=== PATIENT | female | born 1955 | race Hispanic/Latino ===

== ENCOUNTER 2017-09-17 16:16 | Inpatient (IN) | payer OTHER ==
--- NOTE | 2017-09-17 17:38 | RAD ---
LEFT ANKLE THREE VIEWS: 09/17/17 HISTORY: Injury, left ankle pain. FINDINGS: There is a mildly displaced fracture of the medial malleolus and nondisplaced fracture involving the distal shaft of the left fibula. The ankle mortise is maintained. Soft tissue swelling is present. IMPRESSION: Fracture of the distal tibia and fibula. POS: [facility]
[2017-09-17] MEDS ORDERED: Morphine 4 MG/ML Carpuject ONE ×2 (18:07→19:09)
[2017-09-17] MEDS ORDERED: Ondansetron HCl/PF 4 MG/2 ML Vial ONE (18:07)
[2017-09-17 19:36] LABS: #Lymphocytes 2.6 thou/uL (1.20-3.40); #Monocytes 0.5 thou/uL (0.11-0.59); #Neutrophils 8.5 thou/uL (1.40-6.50); %Basophils 0.3 % (0.0-1.0); %Eosinophils 0.4 % (0.0-10.0); %Lymphocytes 22.5 % (21.0-51.0); %Monocytes 4.4 % (0.0-10.0); %Neutrophils 72.4 % (42.0-75.0); Hemoglobin 13.1 g/dL (12.0-16.0); Mean Corpuscular HGB CONC 33.8 g/dL (32.0-36.0); Mean Corpuscular Hemoglobin 29.3 pg (27.0-31.0); Mean Corpuscular Volume 86.7 fl (81.0-99.0); Mean Platelet Volume 7.1 fL (7.4-10.4); Platelet Count 299 thou/uL (130-400); RBC Distribution Width 11.7 % (11.5-14.5); Red Blood Cell (RBC) Count 4.46 mill/uL (4.20-5.40); White Blood Cell (WBC) Count 11.7 thou/uL (4.8-10.8)
[2017-09-17] MEDS ORDERED: Sodium Chloride 0.9% 1,000 ML IV SCH (19:58)
[2017-09-17] MEDS ORDERED: Morphine 4 MG/ML Carpuject SLOW IVP PRN ×2 (19:58→20:14)
[2017-09-17] MEDS ORDERED: Ondansetron HCl/PF 4 MG/2 ML Vial IVP PRN ×2 (19:58→20:14)
[2017-09-17 20:00] LABS: ALT (SGPT) 16 U/L (8-55); AST (SGOT) 16 U/L (5-34); Albumin 4.4 g/dL (3.4-4.8); Alkaline Phosphatase 100 U/L (40-150); Anion Gap 17 mmol/L (10-20); BUN (Urea Nitrogen) 15 mg/dL (9.8-20.1); Bilirubin, Total 0.3 mg/dL (0.2-1.2); Calc. Creatinine Clearance 0 mL/min (70-130); Calcium 9.8 mg/dL (7.8-10.44); Carbon Dioxide 20 mmol/L (23-31); Chloride 103 mmol/L (98-107); Estimated GFR-MDRD 82; Globulin 3.7 g/dL (2.4-3.5); Glucose 182 mg/dL (80-115); Potassium 4.2 mmol/L (3.5-5.1); Protein, Total 8.1 g/dL (6.0-8.3); Sodium 136 mmol/L (136-145)
[2017-09-17] MEDS ORDERED: Promethazine HCl 25 MG/ML VIAL IM PRN (20:14)
[2017-09-17] MEDS ORDERED: traMADol HCl 50 MG TAB PO PRN ×2 (20:14)
[2017-09-17] MEDS ORDERED: Dextrose 5% in Water 1,000 ML IV PRN (20:14)
[2017-09-17] MEDS ORDERED: Morphine 4 MG/ML Carpuject IVP PRN (20:14)
[2017-09-17] MEDS ORDERED: Dextrose 50% Abboject 50 ML SYRINGE SLOW IVP PRN (20:14)
[2017-09-17] MEDS ORDERED: Ondansetron ODT 4 MG TAB PO PRN (20:14)
[2017-09-17] MEDS ORDERED: hydrALAZINE 20 MG/ML VIAL SLOW IVP PRN (20:14)
--- NOTE | 2017-09-17 20:20 | HP ---
Paul Ricketts PA-C, dictating for Dr. Tutu Harvey. ATTENDING PHYSICIAN: Tutu Harvey M.D. CONSULTING PHYSICIAN: Kenneth Foster M.D. CHIEF COMPLAINT: Evaluation for ankle pain status post injury. 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 She reported pain immediately to that area, inability to ambulate. She denied any LOC, or any other injury, or any other pain anywhere at this time, or chest pain, shor tness of breath. PAST MEDICAL HISTORY: Includes diabetes. MEDICATIONS: She takes metformin. ALLERGIES: No known drug allergies. PAST SURGICAL HISTORY: Includes cholecystectomy. PSYCHIATRIC: None. SOCIAL HISTORY: She denies any drug, alcohol, or smoking history. REVIEW OF SYSTEMS: All 10 systems were reviewed otherwise stated in HPI were negative. PHYSICAL EXAMINATION: VITAL SIGNS: Blood pressure 174/77, heart rate of 83, respiratory rate 22, temperature 99. Pain 10/ 10. O2 saturation 100% on room air. HEENT: Atraumatic, normocephalic. Pupils equal, round, and reactive to light. No JVD, no masses. Trachea is midline. Cervical spine is nontender. RESPIRATORY: Clear bilaterally via auscultation. CARDIOVASCULAR: S1, S2, regular rate and rhythm. ABDOMEN: Soft, nontender, nondistended. EXTREMITIES: Normal exam. Left lower extremity is being casted at this time, but positive pulses we re felt, a small abrasion was noted and tenderness to the ankle. Right lower extremity was devoid of injury. NEUROLOGIC: GCS 15. SKIN: Warm and dry. LABORATORY VALUES: Pending. RADIOLOGIC FINDINGS: Ankle x-ray fracture of the distal tibia and fibula. ASSESSMENT: 1. Status post injury with a door. 2. Fracture of the left tibia and fibula. 3. Acute traumatic pain. 4. History of diabetes. PLAN: We will place her on surgical floor and consult the Orthopedics, Dr. Foster will take her to surgery tomorrow. She will be n.p.o. after midnight. Continue with IV fluids. We will optimize her pain management with p.o. and IV analgesics. Initiate DVT prophylaxis and gastritis prophylaxis whe n appropriate. This patient has been discussed with Dr. Harvey, who agrees with the above plan.
[2017-09-17] MEDS: Famotidine/PF 20 mg/2ml Vial SLOW IVP SCH (20:48)
[2017-09-17] MEDS: Sodium Chloride 0.9% 1,000 ML IV SCH (20:48)
[2017-09-17] MEDS: Acetaminophen 500 MG TAB PO SCH (23:27)
[2017-09-17] MEDS: Ketorolac Tromethamine 30 MG/ML VIAL IVP SCH (23:27)
[2017-09-18] MEDS: HumaLOG 300 UNITS/3 ML VIAL SC PRN ×4 (01:18→19:15)
[2017-09-18 04:19] LABS: #Eosinphils 0.1 thou/uL (0.0-0.7); #Lymphocytes 2.1 thou/uL (1.20-3.40); #Monocytes 0.9 thou/uL (0.11-0.59); %Basophils 0.3 % (0.0-1.0); %Eosinophils 0.6 % (0.0-10.0); %Lymphocytes 23.4 % (21.0-51.0); %Monocytes 10.3 % (0.0-10.0); %Neutrophils 65.4 % (42.0-75.0); Hemoglobin 11.7 g/dL (12.0-16.0); Mean Corpuscular HGB CONC 33.8 g/dL (32.0-36.0); Mean Corpuscular Hemoglobin 29.5 pg (27.0-31.0); Mean Corpuscular Volume 87.5 fl (81.0-99.0); Mean Platelet Volume 7.3 fL (7.4-10.4); Platelet Count 244 thou/uL (130-400); RBC Distribution Width 11.6 % (11.5-14.5); Red Blood Cell (RBC) Count 3.95 mill/uL (4.20-5.40); White Blood Cell (WBC) Count 9.1 thou/uL (4.8-10.8)
[2017-09-18 04:34] LABS: Anion Gap 6 mmol/L (10-20); BUN (Urea Nitrogen) 15 mg/dL (9.8-20.1); Calc. Creatinine Clearance 0 mL/min (70-130); Calcium 8.7 mg/dL (7.8-10.44); Carbon Dioxide 27 mmol/L (23-31); Chloride 107 mmol/L (98-107); Estimated GFR-MDRD 82; Glucose 303 mg/dL (80-115); Potassium 3.8 mmol/L (3.5-5.1); Sodium 136 mmol/L (136-145)
[2017-09-18 05:24] VITALS: BMI 24.0
[2017-09-18] MEDS: Ketorolac Tromethamine 30 MG/ML VIAL IVP SCH (05:54)
[2017-09-18] MEDS: Acetaminophen 500 MG TAB PO SCH ×3 (05:55→18:05)
[2017-09-18] MEDS: Sodium Chloride 0.9% 1,000 ML IV SCH (07:45)
--- NOTE | 2017-09-18 08:08 | CON ---
DATE OF CONSULTATION: 09/18/2017 CHIEF COMPLAINT: Left ankle pain. HISTORY OF PRESENT ILLNESS: Ms. Velázquez is a 62-year-old female who fell yesterday. She was pushing a large metal door against the wind when the door overcame her, knocking her down. She twisted her ankle. She had immediate pain. She was unable to ambulate on the left ankle. She was seen in the e mergency department where a left bimalleolar ankle fracture was identified. PAST MEDICAL HISTORY: Diabetes. PAST SURGICAL HISTORY: Positive for cholecystectomy. MEDICATIONS: Metformin. ALLERGIES: No known drug allergies. SOCIAL HISTORY: The patient denies tobacco, alcohol, or smoking. PHYSICAL EXAMINATION: VITAL SIGNS: Stable. Temperature is 98.0, pulse is 61, respiratory 18, blood pressure 111/66. GENERAL: She is alert and oriented, no apparent distress, sitting upright. RESPIRATORY: Breathing comfortably. ABDOMEN: Soft, nontender, nondistended. MUSCULOSKELETAL: The patient's left ankle has a splint. She has 2 second capillary refill. She has good flexion and extension of the toes. Sensation is intact distally. IMAGES: X-rays of the ankle demonstrate a bimalleolar ankle fracture with displacement and slight di sruption of the ankle mortise. IMPRESSION: Left ankle bimalleolar fracture with instability. PLAN: The patient will go to the operating room today for open reduction and internal fixation of th e ankle to restore anatomic alignment and promote healing. Risks have been reviewed including wound complications, hardware complication, nonunion, malunion and others. She will have appropriate DVT p rophylaxis and antibiotic prophylaxis. She will be n.p.o. until after surgery.
[2017-09-18] MEDS ORDERED: CEFAZOLIN/Water 2 GM/20 ML SYRINGE ONE (08:10)
[2017-09-18] MEDS ORDERED: Fentanyl 100 MCG/2 ML VIAL ONE ×3 (08:49→10:56)
[2017-09-18] MEDS ORDERED: Midazolam HCl 2 mg/2 ml Vial ONE (08:49)
[2017-09-18] MEDS ORDERED: Lidocaine 1% (PF) 30 ML VIAL ONE (08:50)
[2017-09-18] MEDS ORDERED: Ondansetron HCl/PF 4 MG/2 ML Vial IVP PRN (11:34)
[2017-09-18] MEDS ORDERED: Promethazine HCl 25 MG/ML VIAL SLOW IVP PRN (11:34)
[2017-09-18] MEDS ORDERED: Promethazine HCl 25 MG/ML VIAL IM PRN (11:34)
--- NOTE | 2017-09-18 12:00 | OP ---
DATE OF PROCEDURE: 09/18/2017 OPERATION: Open reduction and internal fixation of right ankle fracture, bimalleolar. PREOPERATIVE DIAGNOSIS: Right bimalleolar ankle fracture. POSTOPERATIVE DIAGNOSIS: Right bimalleolar ankle fracture. COMPLICATIONS: None. ESTIMATED BLOOD LOSS: Minimal. SURGEON: Raman Sam M.D. ANESTHESIA: General. INDICATIONS: Ms. Velázquez is a 62-year-old female who fell yesterday. She fractured her left ankle. She has an unstable left bimalleolar ankle fracture. She has been indicated for open reduction and internal fixation to restore function and relieve pain. Risks have been reviewed and have been deeme d to be acceptable. She was to proceed. DESCRIPTION OF PROCEDURE: Mr. Velázquez was identified in the preoperative holding area. Her correct extremity was marked. She was carried to the operating room. She was positioned supine. General an esthesia was induced. A multidisciplinary timeout was performed. The left lower extremity was prepp ed and draped in sterile fashion. We began the procedure with a lateral approach to the fibula. We dissected down through the subcutan eous tissues to the bony level. The fibula fracture was exposed. We performed an anatomic reduction . At this point, a 6-hole 1/3 tubular plate was placed along the lateral cortex. Six screws were pl aced transversing the fracture, holding it into its anatomic position. We took x-rays confirming thi s. We then moved to the medial side. A small incision was made over the medial malleolus. We then plac ed a percutaneous 4.0 partially threaded screws across the medial malleolar fracture fragment. We pl aced a second screw enhancing our stabilization. We took x-ray images including a stress view, which was negative. We thoroughly irrigated with copious lavage. We then closed with 2-0 Vicryl suture a nd rika for the skin. A sterile dressing was applied. A splint was placed. The patient was take n to the recovery room in good condition at this point without complication.
[2017-09-18] MEDS: Famotidine/PF 20 mg/2ml Vial SLOW IVP SCH ×2 (12:21→21:21)
--- NOTE | 2017-09-18 13:24 | RAD ---
THREE VIEWS OF THE LEFT ANKLE: HISTORY: Ankle fracture, status post ORIF. COMPARISON: 09/17/2017 FINDINGS/IMPRESSION: Three limited intraoperative fluoroscopic views of the left ankle were submitted for interpretation. The patient is status post screw fixation of the medial malleolus fracture. The patient is status p ost plate and screw fixation of the fistula fibula fracture. Normal alignment of the ankle mortise i s seen. POS: [facility]
[2017-09-18] MEDS ORDERED: Bupivacaine HCl 0.5%/Epinephrine 1:200,000/PF 30 ml Vial ONE (13:30)
[2017-09-18] MEDS ORDERED: CEFAZOLIN 1 GM in Sodium Chloride 0.9% 100 ML IVPB SCH (14:00)
[2017-09-18] MEDS ORDERED: PROPOFOL 200 MG/20 ML VIAL ONE (14:09)
[2017-09-18] MEDS ORDERED: Ketorolac Tromethamine 30 MG/ML VIAL ONE (14:09)
[2017-09-18] MEDS ORDERED: Dexamethasone 20 MG/5 ML VIAL ONE (14:09)
[2017-09-18] MEDS ORDERED: Ondansetron HCl/PF 4 MG/2 ML Vial ONE (14:09)
[2017-09-18] MEDS ORDERED: Lidocaine 1% PF 5 ML VIAL ONE (14:09)
[2017-09-18] MEDS: CEFAZOLIN 1 GM, Syringe 2.5 ML in Sterile Water 7.5 ML SLOW IVP SCH ×2 (14:29→21:22)
--- NOTE | 2017-09-18 19:17 | PRG ---
DATE OF SERVICE: 09/18/2017 Sonia Nash NP, dictating for Carrillo Morales DO ATTENDING PHYSICIAN: Dr. Carrillo Morales. SUBJECTIVE: The patient is a 62-year-old female who sustained a fall one day ago after being knocked down by a metal door. She was admitted to the hospital by Trauma Services with a consult by Dr. Sam, Orthopedics. A right bimalleolar ankle fracture was identified. She was taken to the operating room today for fixation of the right ankle fracture. She is now seen postoperatively on the surgical floor. Pain is well controlled. She is ambulating with no assistance with a walker. OBJECTIVE: VITAL SIGNS: Temperature 98.4, pulse 73, respirations 19, O2 sat 97% on room air, blood pressure 143/81. GENERAL: A 62-year-old female seen ambulating in room with walker. No acute distress. Nontoxic appearing. PULMONARY: Respirations even, unlabored. No respiratory distress. CARDIOVASCULAR: Regular rate and rhythm. Heart sounds normal. ABDOMEN: Soft, nontender, nondistended. EXTREMITIES: Moves all extremities well. Splint in place to the left lower extremity. Cap refill brisk. Neurovascularly intact. All digits warm. NEUROLOGIC: Awake, alert, oriented x3. GCS 15. ASSESSMENT: 1. Status post ground level fall. 2. Left bimalleolar ankle fracture. 3. Status post open reduction internal fixation left ankle. PLAN: 1. Continue care on surgical floor as ordered. 2. Continue PT and OT. 3. Continue IV antibiotics per Orthopedic Service. 4. Regular diet and oral analgesia. The patient was seen with Dr. Morales, attending trauma surgeon, who agrees with the assessment and plan. [facility]
[2017-09-18] MEDS: Aspirin 81 mg Enteric Coated Tablet PO SCH (21:22)
[2017-09-19] MEDS: Acetaminophen 500 MG TAB PO SCH ×3 (00:28→12:26)
[2017-09-19 04:44] VITALS: TEMP 97.9
--- NOTE | 2017-09-19 08:20 | PRG ---
DATE OF SERVICE: 09/19/2017 SUBJECTIVE: The patient is doing well. She is sitting upright in no apparent distress. No complain ts or problems overnight. OBJECTIVE: VITAL SIGNS: Stable 97.9, 74, 139/63. GENERAL: The patient is sitting upright and breathing comfortably. ABDOMEN: Soft, nontender, nondistended. MUSCULOSKELETAL: The patient's splint is clean and dry. This was loosened and the [place] was split over the anterior surface to allow her more room. She has 2 second capillary refill. She is able to flex and extend the foot and toes. LABORATORY DATA: Hemoglobin 11.7, hematocrit 34.5. IMPRESSION: Status post open reduction and internal fixation of left ankle fracture. PLAN: The patient will mobilize with physical therapy. She should be nonweightbearing on the left a nkle. She should be discharged home today if comfortable. She can follow up in 2 weeks in the [facility] for suture and staple removal. She should continue her current splint.
[2017-09-19] MEDS ORDERED: Famotidine 20 MG TAB PO SCH (09:00)
[2017-09-19] MEDS: Aspirin 81 mg Enteric Coated Tablet PO SCH (09:28)
[2017-09-19 11:50] VITALS: BP 143/73
[2017-09-19] MEDS: HumaLOG 300 UNITS/3 ML VIAL SC PRN (12:26)
--- NOTE | 2017-09-19 16:37 | DIS ---
DATE OF ADMISSION: 09/17/2017 DATE OF DISCHARGE: 09/19/2017 ADMITTING PHYSICIAN: Dr. Tutu Harvey. CONSULTING PHYSICIAN: Dr. Kenneth Foster. REASON FOR HOSPITALIZATION: Fall with ankle pain. HOSPITAL DIAGNOSIS: Left tibia fibula fracture. PROCEDURES: Open reduction internal fixation of right ankle fracture, bimalleolar. Date of procedure is 09/18/2017. SURGEON: Raman Sam. Please refer to Dr. Sam's complete operative report for details. CONDITION ON DISCHARGE: Good. Discharged to home. BRIEF HISTORY OF HOSPITALIZATION: A 62-year-old female who fell when a metal door she was closing blew open by wind and knocked her down. She sustained a left bimalleolar ankle fracture. She was admitted to the hospital by Trauma Services. Dr. Sam, Orthopedics, consulted and took the patient to the OR for fixation of her fracture. The following day, pain was well controlled and she was mobilizing using a walker. She was cleared by therapy services to discharge home with a home walker. She was seen by Dr. Sam and cleared for discharge. She was given narcotic pain medicine for discharge by Orthopedics. She was started on aspirin for DVT prophylaxis. She may resume a regular diet. She is to follow up with Dr. Sam in 2 weeks. There is no need for followup with Trauma Services. The patient was reviewed on day of discharge with Dr. Morales, who agrees with the assessment and discharge plan. [facility]ITAL[facility]
--- NOTE | 2017-10-17 17:34 | EKG ---
Test Reason : Blood Pressure : / mmHG Vent. Rate : 075 BPM Atrial Rate : 075 BPM P-R Int : 132 ms QRS Dur : 076 ms QT Int : 406 ms P-R-T Axes : 027 -09 -04 degrees QTc Int : 453 ms Normal sinus rhythm Normal ECG Confirmed by JOANNA NEWBERRY ([id number]), digital editor LORENA PADILLA ([id number]) on 10/17/2017 5:33:19 PM Referred By: JUAN JOSE Confirmed By:JOANNA NEWBERRY
== END 2017-09-19 13:40 | disposition home or self-care (01) | DRG 494 ==
LOC: ERS 16:16 → SURG A 20:11
PROVIDERS: ADMIT Surgery; ATTEND Surgery
PROC: 0QSK04Z Reposition Left Fibula with Internal Fixation Device, Open Approach (ICD-10-PCS; principal; 2017-09-18)
PROC: 0QSH04Z Reposition Left Tibia with Internal Fixation Device, Open Approach (ICD-10-PCS; 2017-09-18)
PROC: 3E0T3BZ Introduction of Anesthetic Agent into Peripheral Nerves and Plexi, Percutaneous Approach (ICD-10-PCS; 2017-09-18)
DX: S82.842A Displaced bimalleolar fracture of left lower leg, initial encounter for closed fracture (principal); W18.09XA Striking against other object with subsequent fall, initial encounter; Y92.59 Other trade areas as the place of occurrence of the external cause; Y99.0 Civilian activity done for income or pay
CPT/HCPCS: 29505; 36415; 36416; 76000; 80048; 80053; 85025; 93005; 96374; 96375; 96376; A4216; C1713; G8978-GP-CM; G8979-GP-CK; J0670; J0690; J1100; J1885; J2001; J2250; J2270; J2405; J2704; J3010; S0028

== ENCOUNTER 2018-01-19 11:12 | Day surgery (SDC) | payer OTHER ==
[2018-01-18 08:49] VITALS: BMI 27.7
[2018-01-19] MEDS ORDERED: CEFAZOLIN/Water 2 GM/20 ML SYRINGE ONE (12:01)
[2018-01-19] MEDS ORDERED: Fentanyl 100 MCG/2 ML VIAL ONE (12:33)
[2018-01-19] MEDS ORDERED: Bupivacaine PF 0.5% 30 ML VIAL ONE (13:29)
[2018-01-19] MEDS ORDERED: Dexamethasone 20 MG/5 ML VIAL ONE (14:21)
[2018-01-19] MEDS ORDERED: PROPOFOL 200 MG/20 ML VIAL ONE (14:21)
[2018-01-19] MEDS ORDERED: Lidocaine 1% PF 5 ML VIAL ONE (14:21)
[2018-01-19] MEDS ORDERED: HYDROcodone/Acetaminophen 5/325 mg Tablet ONE (15:14)
--- NOTE | 2018-01-20 00:37 | OP ---
DATE OF SURGERY: 01/19/2018 PREOPERATIVE DIAGNOSIS: Symptomatic retained hardware, left ankle. POSTOPERATIVE DIAGNOSIS: Symptomatic retained hardware, left ankle. SURGICAL PROCEDURE: Removal of deep implant from left ankle. ANESTHESIA: LMA. SURGEON: Kenneth Foster M.D. TOURNIQUET TIME: Zero. ESTIMATED BLOOD LOSS: 1 mL IMPLANTS: None. DRAINS: None. SPECIMEN: Explanted screws discarded. COMPLICATIONS: None. OUTCOME: Satisfactory. INDICATIONS: The patient is a 62-year-old lady status post bimalleolar ankle fracture, treated with open reduction and internal fixation. Despite going on to uneventful union, the patient is now exper iencing anteromedial ankle pain, felt to be possibly secondary to the retained hardware. After discu ssion with patient including risks and benefits, we decided to proceed with hardware removal of the m edial malleolus. Informed consent has been obtained. I believe all questions answered. PROCEDURE IN DETAIL: The patient was brought to the operating room and a timeout performed followed by the induction of general anesthesia. The patient was positioned supine and then a sterile prep an d drape was performed in left lower extremity. Next, two vertical incisions following the scars from her hardware placement were used to expose the screw heads. The two small fragment screws were then removed without difficulty. Once removed, the two small stab wounds were closed with 4-0 nylon in h orizontal mattress fashion and then a Xeroform gauze and Jimmy wrap dressing was applied to the ankle. The patient was then transferred to recovery room in stable condition. There were no complications. The patient tolerated the procedure well.
== END 2018-01-19 15:50 | disposition home or self-care (01) ==
LOC: SDC 11:12
PROVIDERS: ATTEND Orthopaedic Surgery
PROC: 0SPG04Z Removal of Internal Fixation Device from Left Ankle Joint, Open Approach (ICD-10-PCS; principal; 2018-01-19)
DX: T84.84XA Pain due to internal orthopedic prosthetic devices, implants and grafts, initial encounter (principal); E11.9 Type 2 diabetes mellitus without complications; F32.9 Major depressive disorder, single episode, unspecified; Z79.84 Long term (current) use of oral hypoglycemic drugs; Z79.899 Other long term (current) drug therapy
CPT/HCPCS: J1100; J2001; J2704; J3010; S0020

== ENCOUNTER 2018-02-04 22:22 | Emergency (ER) | payer SELFPAY ==
[2018-02-04] MEDS ORDERED: Clindamycin/D5W 600 mg/50 ml Premix Bag ONE (23:02)
[2018-02-04] MEDS ORDERED: Dexamethasone 10 MG/ML VIAL ONE (23:02)
[2018-02-04] MEDS ORDERED: Morphine 5 MG/ML SYRINGE ONE (23:02)
[2018-02-04 23:09] LABS: #Basophils 0.1 thou/uL (0.0-0.2); #Eosinphils 0.1 thou/uL (0.0-0.7); #Lymphocytes 2.4 thou/uL (1.20-3.40); #Monocytes 0.8 thou/uL (0.11-0.59); #Neutrophils 5.7 thou/uL (1.40-6.50); %Basophils 0.8 % (0.0-1.0); %Eosinophils 0.9 % (0.0-10.0); %Lymphocytes 26.2 % (21.0-51.0); Hemoglobin 13.2 g/dL (12.0-16.0); Mean Corpuscular HGB CONC 35.6 g/dL (32.0-36.0); Mean Corpuscular Hemoglobin 29.3 pg (27.0-31.0); Mean Corpuscular Volume 82.5 fl (81.0-99.0); Mean Platelet Volume 8.1 fL (7.4-10.4); Platelet Count 229 thou/uL (130-400); RBC Distribution Width 11.3 % (11.5-14.5)
[2018-02-04 23:20] LABS: Anion Gap 18 mmol/L (10-20); BUN (Urea Nitrogen) 10 mg/dL (9.8-20.1); Calc. Creatinine Clearance 0 mL/min (70-130); Calcium 9.9 mg/dL (7.8-10.44); Carbon Dioxide 20 mmol/L (23-31); Chloride 100 mmol/L (98-107); Estimated GFR-MDRD Greater than 90; Glucose 281 mg/dL (80-115); Potassium 3.9 mmol/L (3.5-5.1); Sodium 134 mmol/L (136-145)
== END 2018-02-05 00:18 | disposition home or self-care (01) ==
LOC: SCSER 22:22
DX: K04.7 Periapical abscess without sinus (principal); K02.9 Dental caries, unspecified; E11.9 Type 2 diabetes mellitus without complications; Z79.84 Long term (current) use of oral hypoglycemic drugs
CPT/HCPCS: 80048; 85025; 96365; 96375; J2270; J1100; J3490